=== PATIENT | female | born 1970 | race African-American/Black ===

== ENCOUNTER 2016-10-21 17:33 | Emergency (ER) | payer OTHER ==
[2016-10-21 17:52] VITALS: BP 110/69
--- NOTE | 2016-10-21 19:12 | UC ---
Ear Complaint HPI - HPI Summary HPI Summary: 46 female presents today complaining of left ear pain that began 2 days ago . She states her "head feels clogged." She admits to pain radiating into her left jaw/neck and it hurts upon movement/twisting her neck. Patient denies nasal congestion, sore throat. Does admit to having a cough that is worse at night. She also feels dizzy and has headache due to the ear pain/fullness. Denies difficulty breathing or chest pain. No fever/chills. - History of Current Complaint Chief Complaint: UCEar Stated Complaint: EAR THROAT PAIN Time Seen by Provider: 10/21/16 18:18 Hx Obtained From: Patient Hx Last Menstrual Period: 2 WEEKS AGO ?: No Onset/Duration: Sudden Onset, Lasting Days Severity Initially: Mild Severity Currently: Moderate Pain Intensity: 8 Pain Scale Used: 0-10 Numeric Alleviating Factors: OTC Meds - minimal relief with ibuprofen Associated Signs/Symptoms: Positive: URI Symptoms - cough. Negative: Discharge , Hearing Loss, Foreign Body Sensation - Allergies/Home Medications Allergies/Adverse Reactions: Allergies Allergy/AdvReac Type Severity Reaction Status Date / Time Amoxicillin Allergy Intermediate Hives Verified 10/21/16 17:52 Hydrocodone [From Vicodin] Allergy Intermediate Itching Verified 10/21/16 17:52 Home Medications: Home Medications Tizanidine HCl 2 mg PO 10/21/16 [History] Valsartan/HCTZ 80/12.5(NF) [Diovan Hct 80/12.5(NF)] 1 tab PO DAILY 10/21/16 [ History Confirmed 10/21/16] PMH/Surg Hx/FS Hx/Imm Hx Endocrine History Of: Denies: Diabetes, Thyroid Disease, Hyperthyroidism, Hypothyroidism Cardiovascular History Of: Denies: Cardiac Disorders, Hypertension, Pacemaker/ICD Respiratory History Of: Denies: COPD, Asthma GI/ History Of: Denies: Ulcer Neurological History Of: Denies: TIA, Seizures Psychological History Of: Denies: Anxiety, Depression Cancer History Of: Denies: Breast Cancer - Surgical History Surgical History: Yes Surgery Procedure, Year, and Place: Carpal Tunnel Surgery bilateral wrists 2008 , C section 1989 - Family History Known Family History: Positive: Hypertension - Social History Alcohol Use: None Substance Use Type: None Smoking Status (MU): Current Every Day Smoker Type: Cigarettes Amount Used/How Often: 5-6 CIG/DAY - Immunization History Most Recent Tetanus Shot: 2010 Review of Systems Constitutional: Negative Skin: Negative Eyes: Negative ENT: Ear Ache - radiating to left neck, painful to move neck Respiratory: Cough Cardiovascular: Negative Gastrointestinal: Negative Neurovascular: Negative Neurological: Headache Psychological: Negative All Other Systems Reviewed And Are Negative: Yes Physical Exam Triage Information Reviewed: Yes Appearance: Well-Appearing, No Pain Distress, Well-Nourished Vital Signs: Initial Vital Signs Temp 97.6 F 10/21/16 17:49 Pulse 87 10/21/16 17:49 Resp 16 10/21/16 17:49 BP 110/69 10/21/16 17:49 Pulse Ox 98 10/21/16 17:49 Vital Signs Reviewed: Yes Eyes: Positive: Conjunctiva Clear ENT: Positive: Hearing grossly normal, Pharynx normal, TM dull - left effusion/ fluid behind ear drum, not retracted, no signs of infection (erythema, bulging, or discharge). Negative: Nasal congestion, Nasal drainage, TM bulging, TM red, Tonsillar swelling, Tonsillar exudate Dental: Positive: Cervical Lymphadenopathy Neck: Positive: Supple, Tenderness @ - left lateral nexk jaw along cervical chain., Enlarged Nodes @ - left cervical chain Respiratory: Positive: Chest non-tender, Lungs clear, Normal breath sounds, No respiratory distress Cardiovascular: Positive: RRR, No Murmur, Pulses Normal, Brisk Capillary Refill Abdominal Exam: Normal Musculoskeletal Exam: Normal Neurological Exam: Normal Psychological Exam: Normal Skin Exam: Normal Ear Complaint Course/Dx - Course Course Of Treatment: patient will be prescribed claritin-d and flonase to help with congestion and eustachian tube dysfunction. patient instructed to continue use of tylenol/ibuprofen for pain and also to try using saline rinses. if pain and symptoms do not subside told to inform primary care doctor at appointment on sunday for further evaluation and possible antibiotic course. she was in agreement with this plan - Differential Dx/Diagnosis Differential Diagnosis/HQI/PQRI: Bronchitis, Cerumen Impaction, Otitis Externa, Otitis Media, URI Provider Diagnoses: rhinosinusitis, serous effusion left TM w/o otitis media Discharge - Discharge Plan Condition: Stable Disposition: HOME Prescriptions: Fluticasone NASAL SPRAY 50MCG* [Flonase NASAL SPRAY 50MCG*] 2 spray BOTH NARES DAILY #1 btl Loratadine & Pseudoephedrine [Claritin-D 24 Hour 10-240 mg] 1 tab PO DAILY PRN # 10 tab PRN Reason: Congestion Patient Education Materials: Rhinosinusitis (ED), Serous Otitis Media (ED) Referrals: Al Martin MD [Primary Care Provider] - Additional Instructions: Take antihistamine and nasal spray as prescribed to help with congestion and ear fullness. Use hot packs on ear neck to help soothe discomfort. Try using OTC Saline Rinses/Saline sprays to help with congestion and moisturizing your airways. You may also want to get a cough suppressant over the counter to help with your cough to take before bedtime. If symptoms have not improved in the next 1-2 days or have gotten worse be sure to discuss this with your primary care doctor during your appointment on Sunday10/23/16.
== END 2016-10-21 19:16 | disposition home or self-care (01) ==
LOC: UCEAST 17:33
DX: J32.9 Chronic sinusitis, unspecified (principal); H65.192 Other acute nonsuppurative otitis media, left ear; Z88.5 Allergy status to narcotic agent; Z88.0 Allergy status to penicillin; F17.210 Nicotine dependence, cigarettes, uncomplicated
CPT/HCPCS: 99212; G0463

== ENCOUNTER 2017-04-10 14:57 | Emergency (ER) | payer OTHER ==
[2017-04-10 15:16] VITALS: BP 123/71
[2017-04-10] MEDS ORDERED: Aspirin Low Dose CHEW TAB* 81 MG ONE (16:35)
[2017-04-10] MEDS ORDERED: Aspirin Low Dose CHEW TAB* 81 MG PO ONE (16:35)
--- NOTE | 2017-04-10 16:48 | UC ---
Kayce Gonzalez Alok, scribed for Carolina Dash MD on 04/10/17 at 1639 . Cardiac HPI - HPI Summary HPI Summary: 46F presents to [facility] for CP accompanied by SOB/dyspnea since last night. Pt states that her CP is described as heaviness/soreness at her mid-sternal which radiates to her bilateral chest. Pt reports chest spasms for > 1 year. Pt states typically they last <1 minute. PT states never have they lasted this long and she doesn't usually have SOB. Pt states she has taken antacid with improvement of her sx. States she took last night but vomited it up. No other medications have been taken. Pt states that nothing makes her CP better/worse. Pt reports feels fatigue everywhere. Pt denies belching or unusual taste in her mouth. Pt denies cough. PMHx includes HTN. Pt denies h/o DVT/PE. Pt last had a stress test done over a year ago at [facility] and "everything ok" Pt has not seen cardiology since. Pt smokes 1/2 ppd tobacco. Pt denies illicit drugs/ETOH. Pt states her PCP is Dr. Martin and her wet and dry sugar bin operator is Dr. Reynoso. Pt medications reviewed this visit. - History of Current Complaint Chief Complaint: UCGeneralIllness Stated Complaint: TROUBLE BREATHING,CHEST PRESSURE Time Seen by Provider: 04/10/17 16:22 Hx Obtained From: Patient Onset/Duration: Lasting Days, Still Present Timing: Constant Initial Severity: Moderate Current Severity: Moderate Chest Pain Location: Mid Sternal, Left Anterior, Right Lateral Character: Dull/Aching, Heaviness, Pressure/Squeezing Aggravating: Deep Breaths Alleviating: Rest, Nothing Associated Signs & Symptoms: Positive: Chest Pain, SOB, Nausea/Vomiting. Negative: Cough - Allergy/Home Medications Allergies/Adverse Reactions: Allergies Allergy/AdvReac Type Severity Reaction Status Date / Time Amoxicillin Allergy Intermediate Hives Verified 10/21/16 17:52 Hydrocodone [From Vicodin] Allergy Intermediate Itching Verified 10/21/16 17:52 PMH/Surg Hx/FS Hx/Imm Hx Previously Healthy: Yes Cardiovascular History: Hypertension - Surgical History Surgical History: Yes Surgery Procedure, Year, and Place: Carpal Tunnel Surgery bilateral wrists 2008 , C section 1989 - Family History Known Family History: Positive: Hypertension - Social History Occupation: Employed Full-time Alcohol Use: None Substance Use Type: None Smoking Status (MU): Former Smoker Type: Cigarettes Amount Used/How Often: 5-6 CIG/DAY - Immunization History Most Recent Tetanus Shot: 2010 Review of Systems Constitutional: Negative Skin: Negative Eyes: Negative ENT: Negative Respiratory: Shortness Of Breath, Other - dyspnea Cardiovascular: Chest Pain Gastrointestinal: Vomiting - x 1 yesterday Genitourinary: Negative Motor: Negative Neurovascular: Negative Musculoskeletal: Myalgia Neurological: Negative Psychological: Negative All Other Systems Reviewed And Are Negative: Yes Physical Exam Triage Information Reviewed: Yes Appearance: Well-Appearing, No Pain Distress, Well-Nourished Vital Signs: Initial Vital Signs Temp 97.7 F 04/10/17 15:13 Pulse 88 04/10/17 15:13 Resp 18 04/10/17 15:13 BP 123/71 04/10/17 15:13 Pulse Ox 100 04/10/17 15:13 Vital Signs Reviewed: Yes Eye Exam: Normal Eyes: Positive: Conjunctiva Clear ENT Exam: Normal ENT: Positive: Hearing grossly normal, TMs normal. Negative: Nasal drainage Neck exam: Normal Neck: Positive: Supple, Nontender, No Lymphadenopathy Respiratory: Positive: Chest non-tender, Lungs clear, Normal breath sounds, No respiratory distress, Other: - speaking full, easy sentences. Not reproducible pain to anterior chest wall Cardiovascular Exam: Normal Cardiovascular: Positive: RRR, No Murmur, Pulses Normal Abdominal Exam: Normal Abdomen Description: Positive: Nontender, No Organomegaly, Soft Bowel Sounds: Positive: Present Musculoskeletal: Positive: Strength Intact, ROM Intact, No Edema Neurological Exam: Normal Neurological: Positive: Alert, Muscle Tone Normal Skin Exam: Normal Diagnostics - EKG Cardiac Rate: NL - 77 bpm Cardiac Rhythm: Sinus: Normal - TIME: 1456 ST Segment: Normal - Assessment/Plan Course Of Treatment: PT with a h/o htn, tobacco use reports chest pressure and sob since yesterday. PT states different than previous history of chest spasms. No analgesia taken. Pt reports negative stress test 1 year ago. discussed with pt differential including cardiac cause for chest pain. advised pt transfer by EMS to ED For further eval likely to include troponin. Pt refuses - discussed with pt risks or leaving AMA and transfer by private car. Pt accepting of risks including permanent disability and . Pt advised to call 911 if changes her mind or change to her sx. aMA paperwork complete - Clinical Impression Provider Diagnoses: chest pain Discharge - Discharge Plan Condition: Stable Disposition: AGAINST MEDICAL ADVICE Patient Education Materials: Chest Pain (ED) Referrals: Al Martin MD [Primary Care Provider] - Additional Instructions: The doctor that evaluated you today recommended you go to the nearest emergency department for further testing to evaluation your chest pain. Your doctor recommended you go by ambulance. You declined the ambulance transfer and have chosen to go by private vehicle. As discussed, the risk include but are not limited to damange to your heart, heart rhythm problems, permanent disability and sudden . If you change your mind or your symptoms change - call 911 GO to the emergency department - they are expecting you The documentation as recorded by the Kayce rizo Alok accurately reflects the service I personally performed and the decisions made by me, Carolina Dash MD.
== END 2017-04-10 16:44 | disposition left against medical advice (07) ==
LOC: UCEAST 14:57
DX: R07.9 Chest pain, unspecified (principal); I10 Essential (primary) hypertension
CPT/HCPCS: 93005; 99212; A9270-GY; G0463

== ENCOUNTER 2017-04-10 17:09 | Observation (INO) | payer OTHER ==
[2017-04-10] MEDS ORDERED: Aspirin Low Dose CHEW TAB* 81 MG PO ONE (18:03)
[2017-04-10 18:34] LABS: Hematocrit 39 % (35-47); Hemoglobin 13.1 g/dl (12.0-16.0); Mean Corpuscular HGB Conc 34 g/dl (31-36); Mean Corpuscular Hemoglobin 29 pg (27-31); Mean Corpuscular Volume 87 fL (80-97); Mean Platelet Volume 8 um3 (7.4-10.4); Red Blood Count 4.48 10^6/ul (4.0-5.4); Red Cell Distribution Width 13 % (10.5-15); White Blood Count 9.1 10^3/ul (3.5-10.8)
--- NOTE | 2017-04-10 18:53 | ED ---
I, Oh,Soohyun, scribed for Mike Gilbert MD on 04/10/17 at 1800 . HPI Chest Pain - HPI Summary HPI Summary: This 46 y/o female presents to ED for constant but waxing and waning CP since yesterday. Inspiration makes it worse. Positive n/v yesterday. Negative diaphoresis. Pt reports chronic chest "spasm" for which pt is following up with Dr. Reynoso and benign stress test. Pt states this episode of CP is more persistent and long lasting than her usual bout of chest "spasm". Pt is currently taking diazepam. PMHx includes HTN that is controlled with Diovan. - History of Current Complaint Chief Complaint: EDChestPainROMI Time Seen by Provider: 04/10/17 17:51 Hx Obtained From: Patient Onset/Duration: Started Days Ago, Atraumatic, Still Present Timing: Constant Pain Intensity: 9 Pain Scale Used: 0-10 Numeric Chest Pain Location: Diffuse Chest Pain Radiates: No Character: Dull/Aching Aggravating Factor(s): Deep Breaths Alleviating Factor(s): Nothing Associated Signs and Symptoms: Positive: Chest Pain, Nausea, Vomiting. Negative : Shortness of Breath, Diaphoresis - Allergy/Home Medications Allergies/Adverse Reactions: Allergies Allergy/AdvReac Type Severity Reaction Status Date / Time Amoxicillin Allergy Intermediate Hives Verified 04/10/17 17:35 Hydrocodone [From Vicodin] Allergy Intermediate Itching Verified 04/10/17 17:35 Home Medications: Home Medications ALPRAZolam TAB* [Xanax TAB*] 0.25 mg PO Q8H PRN 04/10/17 [History Confirmed ] PMH/Surg Hx/FS Hx/Imm Hx Endocrine/Hematology History: Denies: Hx Diabetes, Hx Thyroid Disease Cardiovascular History: Reports: Hx Hypertension Denies: Hx Hypercholesterolemia, Hx Pacemaker/ICD, Hx Peripheral Vascular Disease Respiratory History: Denies: Hx Asthma, Hx Chronic Obstructive Pulmonary Disease (COPD) GI History: Denies: Hx Ulcer Musculoskeletal History: Denies: Hx Arthritis, Hx Osteoporosis Sensory History: Denies: Hx Cataracts, Hx Contacts or Glasses, Hx Glaucoma, Hx Hearing Aid Opthamlomology History: Denies: Hx Cataracts, Hx Contacts or Glasses, Hx Glaucoma Neurological History: Denies: Hx Headaches, Hx Seizures, Hx Transient Ischemic Attacks (TIA) Psychiatric History: Denies: Hx Anxiety, Hx Depression, Hx Panic Disorder - Cancer History Hx Chemotherapy: No Hx Radiation Therapy: No - Surgical History Surgery Procedure, Year, and Place: Carpal Tunnel Surgery bilateral wrists 2008 , C section 1989 Infectious Disease History: No Infectious Disease History: Denies: Hx Hepatitis, Hx Human Immunodeficiency Virus (HIV), Hx of Known/ Suspected MRSA, Hx Shingles, Hx Tuberculosis, Hx Known/Suspected VRSA, Traveled Outside the [place] in Last 30 Days - Family History Known Family History: Positive: Hypertension - Social History Alcohol Use: None Alcohol Amount: denies Hx Substance Use: No Substance Use Type: Reports: None Hx Tobacco Use: No Smoking Status (MU): Heavy Every Day Tobacco Smoker Type: Cigarettes Amount Used/How Often: 5-6 CIG/DAY Review of Systems Positive: Skin Diaphoresis. Negative: Fever Positive: Chest Pain Negative: Shortness Of Breath Positive: Vomiting, Nausea All Other Systems Reviewed And Are Negative: Yes Physical Exam - Summary Physical Exam Summary: Well-appearing, no pain distress, Obese Warm, dry, color reflects adequate perfusion Nml head/face Nml eyes Nml ENT Supple, non-tender CTA, breath sound present RRR. POSITIVE PARASTERNAL TENDERNESS Abd soft, non-tender, Bowel sounds + Nml musculoskeletal Nml neuro Nml psychiatric, affect/mood appropriate Triage Information Reviewed: Yes Vital Signs On Initial Exam: Initial Vitals Temp Pulse Resp BP Pulse Ox 98.1 F 72 18 118/76 100 04/10/17 17:18 04/10/17 17:18 04/10/17 17:18 04/10/17 17:18 04/10/17 17:18 Vital Signs Reviewed: Yes - Faina Coma Scale Coma Scale Total: 15 Diagnostics - Vital Signs Vital Signs Temp Pulse Resp BP Pulse Ox 04/10/17 17:35 75 99 04/10/17 17:34 111/52 04/10/17 17:33 98.1 F 72 19 111/52 99 04/10/17 17:18 98.1 F 72 18 118/76 100 - Laboratory Lab Results: Lab Results 04/10/17 04/10/17 Range/Units 18:25 18:25 WBC 9.1 (3.5-10.8) 10^3/ul RBC 4.48 (4.0-5.4) 10^6/ul Hgb 13.1 (12.0-16.0) g/dl Hct 39 (35-47) % MCV 87 (80-97) fL MCH 29 (27-31) pg MCHC 34 (31-36) g/dl RDW 13 (10.5-15) % Plt Count 221 (150-450) 10^3/ul MPV 8 (7.4-10.4) um3 Neut % (Auto) 45.7 (38-83) % Lymph % (Auto) 43.9 (25-47) % Gray % (Auto) 5.5 (1-9) % Eos % (Auto) 3.6 (0-6) % Baso % (Auto) 1.3 (0-2) % Absolute Neuts (auto) 4.2 (1.5-7.7) 10^3/ul Absolute Lymphs (auto) 4.0 (1.0-4.8) 10^3/ul Absolute Monos (auto) 0.5 (0-0.8) 10^3/ul Absolute Eos (auto) 0.3 (0-0.6) 10^3/ul Absolute Basos (auto) 0.1 (0-0.2) 10^3/ul Absolute Nucleated RBC 0.01 10^3/ul Nucleated RBC % 0.1 D-Dimer, Quantitative < 200 (Less Than 230) ng/mL Result Diagrams: 04/10/17 18:25 Lab Statement: Any lab studies that have been ordered have been reviewed, and results considered in the medical decision making process. - Radiology CXR Radiology Interpretation Completed By: Radiologist - EKG 1726 Cardiac Rate: NL - 68 BPM EKG Rhythm: Sinus Rhythm EKG Comparison: No Significant Change - 06/10/2015 Chest Pain Course/Dx - Course Course Of Treatment: Ms. Cano presented with about 24 hours of CP. She normally has spasms in her chest that go away after a few minutes but this has persisted. It is exacerbated by inspiration only. She is tender in the chest wall and she is getting a W/U to R/O any dangerous pathology. I expect that she will go home and that this is a chest wall pain. - Diagnoses Provider Diagnoses: Chest wall pain Discharge - Discharge Plan Condition: Stable Disposition: OTHER Discharge Disposition Comment: Signed out at change of shift. The documentation as recorded by the scribeRamon Soohyun accurately reflects the service I personally performed and the decisions made by me, Mike Gilbert MD.
[2017-04-10 18:55] LABS: Albumin 3.9 g/dL (3.2-5.2); BUN/Creatinine Ratio 11.5 (8-20); Calcium 9.2 mg/dL (8.6-10.3); EGFR Non-African American 56.8 (>60); Globulin 3.2 g/dL (2-4); Potassium 3.6 mmol/L (3.5-5.0); Total Bilirubin 0.4 mg/dL (0.2-1.0); Total Protein 7.1 g/dL (6.4-8.9)
[2017-04-10 18:59] LABS: Troponin I 0.06 ng/mL (<0.04)
--- NOTE | 2017-04-10 19:06 | CONSULT ---
Consult Consult: The troponin returned a little elevated and Dr. Seo was contacted. She will be admitted in stable condition with a diagnosis of chest pain.
--- NOTE | 2017-04-10 19:30 | RAD ---
Indication: Chest pain since yesterday. Hypertension. Comparison: June 10, 2015 Technique: Upright AP 1830 hours Report: Clear lungs and pleural spaces. Negative for pneumothorax. Accounting for mild rightward rotation the heart, pulmonary vasculature, and mediastinal contours are unremarkable. Unremarkable osseous structures and soft tissue contours. IMPRESSION: No evidence for acute intrathoracic disease.
[2017-04-10] MEDS ORDERED: ALPRAZolam TAB* 0.25 MG PO PRN (20:04)
[2017-04-10] MEDS ORDERED: traMADol TAB* 50 MG PO PRN (20:04)
[2017-04-10] MEDS: Heparin VIAL(*) 5000 UNITS/ML VIAL (FIVE THOUSAND) SUBCUT SCH (22:50)
[2017-04-10] MEDS: tiZANidine TAB* 2 MG PO SCH (22:50)
--- NOTE | 2017-04-11 00:20 | HP ---
CC: Dr. Martin * HISTORY AND PHYSICAL: DATE OF ADMISSION: CHIEF COMPLAINT: Chest pain. HISTORY OF PRESENT ILLNESS: The patient is a 46-year-old woman who said she had chest pain that started yesterday. Her doctors stated it was a spasm and they gave her a muscle relaxant for it. So, she took the muscle relaxant for it and she vomited everywhere. The pain never went away. It was 9.5/10 in severity, but it is down now to about a 7/10. She feels like as someone sitting on her chest. It started on her right side, then moved to her left side and it is now in the center of her chest. She said that she had a warm feeling in her neck. She denied any shortness of breath. It was worse when she took a deep breath before, but now it is not. She has no nausea, vomiting now. No shortness of breath. No palpitations. No sweating. PAST MEDICAL HISTORY: Significant for hypertension. PAST SURGICAL HISTORY: Significant for carpal tunnel surgery and a . ALLERGIES: She has an allergy/adverse reaction to amoxicillin and Vicodin. CURRENT MEDICATIONS: As follows: 1. Tramadol 50 mg 3 times a day as needed. 2. Diovan/hydrochlorothiazide 80/12.5 one tablet daily. 3. Tizanidine 2 mg twice daily. 4. Xanax 0.25 mg every 8 hours as needed. FAMILY HISTORY: Mother is alive at 64, has bilateral bilateral hip replacements , but no heart disease. Father at 35 of pancreatic cancer. SOCIAL HISTORY: Still smokes a half pack a day, used to smoke over a pack a day , has done so for over 20 years. No alcohol. No recreational drug use. 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 She just got on February 27 and she had a son who last year. REVIEW OF SYSTEMS: A 14-point review of systems was completed with the patient. All pertinent positives and negatives are in the history of present illness, otherwise it is negative. PHYSICAL EXAMINATION GENERAL: A pleasant woman, lying in bed, in no acute distress. VITAL SIGNS: Temperature 98.1 degrees, heart rate 85 beats a minute, respiratory rate 16 breaths per minute, pulse ox 100%, blood pressure 109/82. HEENT: Normocephalic, atraumatic. Pupils equal, round, and reactive to light. Moist mucous membranes. NECK: Supple. No JVD, bruits, palpable thyroid or lymphadenopathy. CHEST: Clear to auscultation and percussion bilaterally. CARDIOVASCULAR: S1 and S2 appreciated. ABDOMEN: Positive bowel sounds in all 4 quadrants. Soft, nontender, nondistended. EXTREMITIES: No cyanosis, clubbing, or edema. +2 peripheral pulses bilaterally. NEUROLOGIC: Alert and oriented x3. Moves all extremities. SKIN: No rashes or abnormalities. LAB DATA: White count of 9.1, hemoglobin 13.1, hematocrit 38.9, platelets 221. Sodium 134, potassium 3.6, chloride 103, CO2 27, BUN 12, creatinine 1.04, glucose 82, troponin 0.06. D-dimer is less than 200. Chest x-ray shows no evidence for acute intrathoracic disease. EKG shows normal sinus rhythm at 68 beats per minute. Normal axis. No acute ST-T wave changes. ASSESSMENT AND PLAN: 1. Chest pain, unlikely cardiac, but the trop is elevated. We will cycle her trops. If they do not move, we will get a nuclear stress test in the morning. Check lipid profile. Admit to telemetry. 2. Tobacco abuse, encouraged cessation. Not in need of nicotine replacement at this time. 3. Hypertension, currently well controlled. Continue current regimen. 4. DVT prophylaxis, heparin subcu. 5. FEN. NPO after midnight. 6. The patient is a full code. TIME SPENT: Over 75 minutes were spent on this H and P, more than 40 minutes of which was spent in direct [id number] contact with the patient in evaluation , physical exam, and counseling and coordination of care. [id number]/[facility] #: [id number] TAMMY
[2017-04-11 04:56] LABS: HDL Cholesterol 33.9 mg/dL
[2017-04-11] MEDS: Heparin VIAL(*) 5000 UNITS/ML VIAL (FIVE THOUSAND) SUBCUT SCH (06:09)
[2017-04-11 08:45] VITALS: BP 104/60
[2017-04-11] MEDS: tiZANidine TAB* 2 MG PO SCH (08:49)
[2017-04-11] MEDS ORDERED: Valsartan TAB* 80 MG PO SCH (09:00)
[2017-04-11] MEDS ORDERED: Omeprazole CAP* 20 MG PO SCH (09:00)
[2017-04-11] MEDS ORDERED: Hydrochlorothiazide TAB* 25 MG PO SCH (09:00)
--- NOTE | 2017-04-11 13:06 | RAD ---
Edited for charges. INDICATION: Chest pain. COMPARISON: There are no prior studies available for comparison. Technique: A single day myocardial perfusion stress study was performed. Initially a resting study was performed. The patient was given an intravenous injection of 10.3 mCi of technetium 99m tetrofosmin and and the heart was imaged in multiple projections. The patient returned later in the day and under the direction of Dr. Remy, the patient was exercised to a peak heart rate of 189 beats per minute which was 109% of the maximum predicted heart rate. Subsequently the patient was given intravenous injection of 26.3 mCi of technetium 99m tetrofosmin and the heart was imaged in multiple projections. Images were reconstructed in the axial, sagittal and coronal planes and in a 3- D format. FINDINGS: There appears to be normal wall motion and myocardial thickening. The left ventricular ejection fraction was calculated to be 69%. Review of the images demonstrates normal distribution of radiopharmaceutical. There was no evidence for infarct or ischemia. IMPRESSION: NO EVIDENCE FOR INFARCT OR ISCHEMIA. ASSESSMENT: Low risk. Based on imaging criteria from ACC/AHA 2002 Guideline Update for the Management of Patients With Chronic Stable Angina Table 23. Noninvasive Risk Stratification. MTDD
--- NOTE | 2017-04-11 13:44 | DCNOTE ---
Patient seen this AM and again after stress test. Reports feeling much better this morning, residual chest discomfort feel like heartburn. No SOB. On exam, RRR, s1 and s2 present, no m/g/r, abd soft, NTND, BS+, lungs CTA B/L, no w/r/r NST low risk. Will trial PPI. Stop taking PO apple cider vinegar. F/U with PCP.
--- NOTE | 2017-04-11 15:44 | DS ---
CC: Dr. Martin DATE OF ADMISSION: 04/10/2017. DATE OF DISCHARGE: 04/11/2017. PRIMARY CARE PHYSICIAN: Dr. Martin. PRINCIPAL DISCHARGE DIAGNOSIS: Chest pain, mild troponin elevation. SECONDARY DIAGNOSIS: Hypertension. DISCHARGE MEDICATION REGIMEN: 1. Omeprazole 20 mg by mouth daily. 2. Diovan 80/12.5 one tablet by mouth daily. 3. Tramadol 50 mg by mouth 3 times daily as needed for pain. 4. Tizanidine 2 mg by mouth 2 times daily. 5. Alprazolam 0.25 mg by mouth every 8 hours as needed for anxiety. STUDIES DONE DURING HOSPITALIZATION: 1. Chest x-ray: Impression: No evidence for acute intrathoracic disease. 2. Cardiac stress test: Impression: No evidence for infarct or ischemia. Assessment: Low risk. HISTORY OF PRESENT ILLNESS AND HOSPITAL SUMMARY: Please see the full history and physical by Dr. Maximo Seo for full details. Briefly, Ms. Cano is a 46-year-old female with a past medical history o f hypertension who presented to the hospital with severe right and left sided chest pain. She state s it started on the right and then moved to the left and subsequently felt like a pressure and then changed into a burning sensation. The pain was pleuritic in nature. She denied any shortness of br eath, associated nausea or vomiting, or diaphoresis. In the emergency department, she was found to have a normal EKG; however, she had a minimally elevated troponin to 0.06, which peaked at 0.07. Th e following morning when I evaluated the patient, she states that the pain was much improved and now felt more like indigestion. She underwent a nuclear cardiac stress test that was negative. Unclea r as to the exact etiology of her chest pain or her mild troponin elevation. The patient states she takes apple cider vinegar twice a day which could certainly contribute to sensation of reflux. I t old her to stop this for now and consider one week trial of Omeprazole to see if there is any improv ement in her symptoms. The patient will be discharged to follow-up with her PCP as an outpatient. Total time spent on this discharge was 40 minutes. This is a summary of the hospitalization. Please see the full medical record for further details. [id number]/[facility] #: [id number]
== END 2017-04-11 15:10 | disposition home or self-care (01) ==
LOC: ED 17:09 → MEDTELE 20:12
PROVIDERS: ADMIT Internal Medicine; ATTEND Hospitalist
DX: R07.9 Chest pain, unspecified (principal); R74.8 Abnormal levels of other serum enzymes; I10 Essential (primary) hypertension; Z79.899 Other long term (current) drug therapy; Z88.0 Allergy status to penicillin; Z88.5 Allergy status to narcotic agent; F17.210 Nicotine dependence, cigarettes, uncomplicated
CPT/HCPCS: 36415; 71010; 78452; 80053; 80061; 83605; 84484; 85025; 85379; 93005; 93017; 96372; 99284; 99406; A9270-GY; A9502; G0378; J1644

== ENCOUNTER 2017-11-27 21:08 | Emergency (ER) | payer OTHER ==
[2017-11-27 21:55] LABS: ABS Basophils 0.1 10^3/ul (0-0.2); ABS Eosinophils 0.1 10^3/ul (0-0.6); ABS Lymphocytes 2.6 10^3/ul (1.0-4.8); ABS Monocytes 0.3 10^3/ul (0-0.8); ABS Neutrophils 6.3 10^3/ul (1.5-7.7); ABS Nucleated RBC 0 10^3/ul; Eosinophil % 0.7 % (0-6); Hematocrit 39 % (35-47); Hemoglobin 13.4 g/dl (12.0-16.0); Lymphocyte % 28.1 % (25-47); Mean Corpuscular HGB Conc 34 g/dl (31-36); Mean Corpuscular Hemoglobin 29 pg (27-31); Mean Corpuscular Volume 86 fL (80-97); Mean Platelet Volume 8 um3 (7.4-10.4); Nucleated Red Blood Cells % 0; Platelet Count 236 10^3/ul (150-450); Red Blood Count 4.61 10^6/ul (4.0-5.4); Red Cell Distribution Width 13 % (10.5-15); White Blood Count 9.4 10^3/ul (3.5-10.8)
[2017-11-27] MEDS ORDERED: Diazepam SYRINGE* 5 MG/ML 2 ML SYRINGE (10 MG total) IV ONE (21:55)
[2017-11-27] MEDS ORDERED: Ketorolac INJ* 30 MG/ML 1 ML VIAL IV PUSH ONE (21:55)
--- NOTE | 2017-11-27 21:58 | RAD ---
INDICATION: Chest pain. COMPARISON: Comparison is made with a prior chest x-ray study from June 10, 2015. TECHNIQUE: A portable view of the chest was obtained. FINDINGS: Cardiac and mediastinal contours appear to be within normal limits. The lungs are underinflated and grossly clear. No pleural effusion is seen. IMPRESSION: NO EVIDENCE FOR ACUTE DISEASE.
[2017-11-27 22:03] LABS: INR 0.91 (0.77-1.02)
[2017-11-27 22:11] LABS: EGFR Non-African American 59.2 (>60)
--- NOTE | 2017-11-27 23:05 | ED ---
Letty Gonzlaez Rebecca, scribed for Viktor Perez MD on 11/27/17 at 2155 . 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 Pain is currently severe, ranked 10/10 and characterized as spasmodic with radiation to the left shoulder and left and rear sides of the neck. Sx aggravated by movement, alleviated by nothing, unchanged by ASA. Additionally c/o bilateral hand numbness/tingling that she states is present "all the time." PMHx carpal tunnel and neck spasms for which she has had a neck XR that was negative per pt, and she is currently taking Gabapentin. Typically spasms last 20-30 seconds, but this episode has been constant since onset. In March 2017 the pt had a stress test and cardiac workup that was negative. - History of Current Complaint Chief Complaint: EDChestWallPain Time Seen by Provider: 11/27/17 21:45 Hx Obtained From: Patient Hx Last Menstrual Period: 2 WEEKS AGO Onset/Duration: Started Hours Ago, Still Present Time of Onset: 14:30 Timing: Constant Current Severity: Severe Pain Intensity: 10 Pain Scale Used: 0-10 Numeric Chest Pain Location: Left Anterior Chest Pain Radiates: Yes Chest Pain Radiates To:: Shoulder - Left, Neck - Left and rear Character: Other: - Spasmodic Aggravating Factor(s): Movement Alleviating Factor(s): Nothing Associated Signs and Symptoms: Positive: Other: - Bilateral hand numbness/ tingling - Allergy/Home Medications Allergies/Adverse Reactions: Allergies Allergy/AdvReac Type Severity Reaction Status Date / Time amoxicillin Allergy Hives Verified 11/27/17 21:13 hydrocodone Allergy Itching Verified 11/27/17 21:14 PMH/Surg Hx/FS Hx/Imm Hx Endocrine/Hematology History: Denies: Hx Diabetes, Hx Thyroid Disease Cardiovascular History: Reports: Hx Hypertension Denies: Hx Hypercholesterolemia, Hx Pacemaker/ICD, Hx Peripheral Vascular Disease Respiratory History: Denies: Hx Asthma, Hx Chronic Obstructive Pulmonary Disease (COPD) GI History: Denies: Hx Ulcer Musculoskeletal History: Denies: Hx Arthritis, Hx Osteoporosis Sensory History: Reports: Hx Contacts or Glasses Denies: Hx Cataracts, Hx Glaucoma, Hx Hearing Aid Opthamlomology History: Reports: Hx Contacts or Glasses Denies: Hx Cataracts, Hx Glaucoma Neurological History: Denies: Hx Headaches, Hx Seizures, Hx Transient Ischemic Attacks (TIA) Psychiatric History: Denies: Hx Anxiety, Hx Depression, Hx Panic Disorder - Cancer History Hx Chemotherapy: No Hx Radiation Therapy: No - Surgical History Surgery Procedure, Year, and Place: Carpal Tunnel Surgery bilateral wrists 2008 , C section 1989 Infectious Disease History: No Infectious Disease History: Denies: Hx Hepatitis, Hx Human Immunodeficiency Virus (HIV), Hx of Known/ Suspected MRSA, Hx Shingles, Hx Tuberculosis, Hx Known/Suspected VRSA, Traveled Outside the [place] in Last 30 Days - Family History Known Family History: Positive: Hypertension - Social History Alcohol Use: None Alcohol Amount: denies Hx Substance Use: No Substance Use Type: Reports: None Hx Tobacco Use: No Smoking Status (MU): Heavy Every Day Tobacco Smoker Type: Cigarettes Amount Used/How Often: 1 pack in 2 days Review of Systems Positive: Chest Pain Positive: Numbness - Numbness/tingling in the bilateral hands All Other Systems Reviewed And Are Negative: Yes Physical Exam - Summary Physical Exam Summary: VITAL SIGNS: Reviewed. GENERAL: ~Patient is a well-developed and nourished female who is lying comfortable in the stretcher. Patient is not in any acute respiratory distress. HEAD AND FACE: No signs of trauma. No ecchymosis, hematomas or skull depressions. No sinus tenderness. EYES: PERRLA, EOMI x 2, No injected conjunctiva, no nystagmus. EARS: Hearing grossly intact. Ear canals and tympanic membranes are within normal limits. MOUTH: Oropharynx within normal limits. NECK: Trachea is midline, no adenopathy, no JVD, no carotid bruit. Tenderness over the left side of the neck and neck pain with movement. CHEST: Symmetric, no tenderness at palpation LUNGS: Clear to auscultation bilaterally. No wheezing or crackles. CVS: Regular rate and rhythm, S1 and S2 present, no murmurs or gallops appreciated. ABDOMEN: Soft, non-tender. No signs of distention. No rebound no guarding, and no masses palpated. Bowel sounds are normal. EXTREMITIES: FROM in all major joints, no edema, no cyanosis or clubbing. NEURO: Alert and oriented x 3. No acute neurological deficits. Speech is normal and follows commands. SKIN: Dry and warm Triage Information Reviewed: Yes Vital Signs On Initial Exam: Initial Vitals Temp Pulse Resp BP Pulse Ox 97.9 F 89 16 145/83 99 11/27/17 21:10 11/27/17 21:10 11/27/17 21:10 11/27/17 21:10 11/27/17 21:10 Vital Signs Reviewed: Yes Diagnostics - Vital Signs Vital Signs Temp Pulse Resp BP Pulse Ox 11/27/17 21:42 84 15 100 11/27/17 21:10 97.9 F 89 16 145/83 99 - Laboratory Result Diagrams: 11/27/17 21:40 11/27/17 21:40 Lab Statement: Any lab studies that have been ordered have been reviewed, and results considered in the medical decision making process. - Radiology CXR Xray Interpretation: No Acute Changes - NO EVIDENCE FOR ACUTE DISEASE. ED physician reviewed this radiology report. Radiology Interpretation Completed By: Radiologist - EKG 2113 Cardiac Rate: NL - 85 bpm EKG Rhythm: Sinus Rhythm EKG Interpretation: Normal axis. Normal interval. No ischemic changes. Re-Evaluation - Re-Evaluation First Eval Re-Evaluation Time: 22:59 Change: Improved Comment: Pt's sx have improved since being given Valium and Toradol. Discussed results and D/C plan with the pt. 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 Sx aggravated by movement, unchanged by ASA. Additionally c/o bilateral hand numbness/ tingling that she states is present "all the time." PMHx carpal tunnel and neck spasms for which she has had a neck XR that was negative per pt, and she is currently taking Gabapentin. Typically spasms last 20-30 seconds, but this episode has been constant since onset. In March 2017 the pt had a stress test and cardiac workup that was negative. CXR reveals no acute findings. EKG is sinus rhythm with no ischemic changes. Troponin of 0.01. In the ED course, the pt was given Valium and Toradol which improved sx. Pt will be D/C to home with Dx of neck spasms and neck pain and a followup with her PCP with Rx for Valium and motrin. Allergies and elevated BP noted. - Diagnoses Provider Diagnoses: Neck muscle spasm, Neck pain Discharge - Discharge Plan Condition: Stable Disposition: HOME Prescriptions: Diazepam TAB(*) [Valium TAB(*)] 5 mg PO TID PRN #14 tab MDD 3 PRN Reason: Spasms - Neck Ibuprofen TAB* [Motrin TAB* 800 MG] 800 mg PO Q6H PRN #30 tab PRN Reason: Pain Patient Education Materials: Muscle Spasm (ED), Neck Pain (ED) Referrals: Al Martin MD [Primary Care Provider] - 3 Days Additional Instructions: RETURN TO EMERGENCY DEPARTMENT FOR ANY NEW OR WORSENING SYMPTOMS The documentation as recorded by the Letty rizo Rebecca accurately reflects the service I personally performed and the decisions made by Chris connell Abdul, MD.
[2017-11-27 23:27] VITALS: BP 120/78
== END 2017-11-27 23:35 | disposition home or self-care (01) ==
LOC: ED 21:08
DX: M62.838 Other muscle spasm (principal); M54.2 Cervicalgia; R20.0 Anesthesia of skin; R20.2 Paresthesia of skin; I10 Essential (primary) hypertension; Z88.1 Allergy status to other antibiotic agents; Z88.5 Allergy status to narcotic agent; F17.210 Nicotine dependence, cigarettes, uncomplicated
CPT/HCPCS: 36415; 71045; 80053; 82553; 83605; 84484; 85025; 85379; 85610; 93005; 96374; 96375; 99283; J1885; J3360

== ENCOUNTER 2018-09-28 15:46 | Emergency (ER) | payer OTHER ==
[2018-09-28 15:58] VITALS: BP 119/70
--- NOTE | 2018-09-28 16:16 | UC ---
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 - History Of Current Complaint Chief Complaint: UCUpperExtremity Stated Complaint: FINGER INJURY Time Seen by Provider: 09/28/18 16:11 Hx Obtained From: Patient Hx Last Menstrual Period: 09/15/2018 ?: No Mechanism Of Injury: crush Onset/Duration: Sudden Onset, Still Present Pain Intensity: 10 Pain Scale Used: 0-10 Numeric Character Of Pain: Aching, Throbbing Aggravating Factor(s): Movement Alleviating Factor(s): Nothing Associated Signs And Symptoms: Positive: Negative Related History: Dominant Hand Right - Allergies/Home Medications Allergies/Adverse Reactions: Allergies Allergy/AdvReac Type Severity Reaction Status Date / Time amoxicillin Allergy Hives Verified 11/27/17 21:13 hydrocodone Allergy Itching Verified 11/27/17 21:14 Home Medications: Home Medications Albuterol HFA INHALER* [Ventolin HFA Inhaler*] 09/28/18 [History] PMH/Surg Hx/FS Hx/Imm Hx Previously Healthy: No Cardiovascular History: Hypertension Psychological History: Anxiety - Surgical History Surgical History: Yes Surgery Procedure, Year, and Place: Carpal Tunnel Surgery bilateral wrists 2008 , C section 1989 - Family History Known Family History: Positive: Hypertension - Social History Occupation: Employed Part-time Lives: With Family Alcohol Use: None Alcohol Amount: denies Substance Use Type: None Smoking Status (MU): Light Every Day Tobacco Smoker Type: Cigarettes Amount Used/How Often: 1 pack in 2 days - Immunization History Most Recent Tetanus Shot: 2010 Review of Systems All Other Systems Reviewed And Are Negative: Yes Constitutional: Positive: Negative Skin: Positive: Bruising - tip of right 5th finger Eyes: Positive: Negative ENT: Positive: Negative Respiratory: Positive: Negative Cardiovascular: Positive: Negative Gastrointestinal: Positive: Negative Genitourinary: Positive: Negative Motor: Positive: Negative Neurovascular: Positive: Negative Musculoskeletal: Positive: Arthralgia - right fifth finger Neurological: Positive: Negative Psychological: Positive: Negative Is Patient Immunocompromised?: No Physical Exam Triage Information Reviewed: Yes Appearance: Well-Appearing, No Pain Distress, Well-Nourished Vital Signs: Initial Vital Signs Temp 97.9 F 09/28/18 15:52 Pulse 87 09/28/18 15:52 Resp 16 09/28/18 15:52 BP 119/70 09/28/18 15:52 Pulse Ox 98 09/28/18 15:52 Vital Signs Reviewed: Yes Eye Exam: Normal Eyes: Positive: Conjunctiva Clear ENT Exam: Normal ENT: Positive: Normal ENT inspection, Hearing grossly normal. Negative: Trismus , Muffled voice, Hoarse voice Dental Exam: Normal Neck exam: Normal Neck: Positive: Supple, Nontender Respiratory Exam: Normal Respiratory: Positive: Chest non-tender, No respiratory distress, No accessory muscle use Cardiovascular Exam: Normal Cardiovascular: Positive: RRR, Pulses Normal, Brisk Capillary Refill Musculoskeletal Exam: Other - right 5th finger painful mostly distally Musculoskeletal: Positive: Strength Limited @, ROM Limited @, Edema @ Neurological Exam: Normal Neurological: Positive: Alert, Muscle Tone Normal Psychological Exam: Normal Skin Exam: Other Skin: Positive: Other - acrylic nail cracked-small superficially lacaeration tip of finger well approximated Diagnostics - Radiology No standard instances Radiology Interpretation Completed By: Radiologist - minimally displaced fracture distant phalange Hand/Wrist Course/Dx - Course Course Of Treatment: up date tetanus, soap and water wash, po doxycycline, splint dressing follow with orthopedic MD - Differential Dx/Diagnosis Provider Diagnosis: Fracture of distal phalanx of finger of right hand Discharge - Sign-Out/Discharge Documenting (check all that apply): Patient Departure All imaging exams completed and their final reports reviewed: Yes - Discharge Plan Condition: Stable Disposition: HOME Prescriptions: DOXYcycline CAP(*) [DOXYcycline 100MG CAP(*)] 100 mg PO BID 7 Days #14 cap Patient Education Materials: Ibuprofen (By mouth), Finger Dislocation (ED), R.I.C.E. Treatment (ED), Crush Injury (ED) Forms: *Work Release Referrals: Taylor Calhoun MD [Medical Doctor] - 3 Days Additional Instructions: wash wound daily, check for infection daily---no swimming, soaking in water ( like doing the dishes) until cleared by ortho - Billing Disposition and Condition Condition: STABLE Disposition: Home - Attestation Statements Provider Attestation: Per institutional requirements, I have reviewed the chart, however, I was not consulted specifically or made aware of this patient by the midlevel provider. I did not personally evaluate, interact with , or disposition this patient.
[2018-09-28] MEDS ORDERED: Tetan/Diph/Pertus SYR(Tdap)* 0.5 ML SYR(BOOSTRIX) use SYR IM ONE (16:38)
[2018-09-28] MEDS ORDERED: Ibuprofen TAB* 600 MG PO ONE (16:38)
== END 2018-09-28 17:35 | disposition home or self-care (01) ==
LOC: UCEAST 15:46
DX: S62.636A Displaced fracture of distal phalanx of right little finger, initial encounter for closed fracture (principal); W23.0XXA Caught, crushed, jammed, or pinched between moving objects, initial encounter; Y92.810 Car as the place of occurrence of the external cause; Z23 Encounter for immunization; Z88.5 Allergy status to narcotic agent; Z88.0 Allergy status to penicillin; F17.210 Nicotine dependence, cigarettes, uncomplicated
CPT/HCPCS: 73140; 90715; 99213; A9270-GY; G0463

== ENCOUNTER 2020-01-08 15:37 | Emergency (ER) | payer OTHER ==
[2020-01-08 16:13] VITALS: BP 125/73
--- NOTE | 2020-01-08 16:19 | UC ---
Abdominal Pain Female HPI - HPI Summary HPI Summary: 49-year-old woman comes in with a chief complaint of left groin pain. Started early this morning and its gradually gotten worse during the course of the day. Was mild this morning now it severe. Pain is worse with palpation and movement. No fevers measured. No urinary symptoms bowels have been normal. Patient did have years ago no other abdominal surgeries. She has had tubal ligation in the past. Does not feel lightheaded. Patient had been having regular menstrual cycles until 6 months ago and then she had no menstrual cycle for 6 months and then 16 days ago started bleeding again and had bleeding for the whole time last bleeding was yesterday. No vaginal bleeding today. - History of Current Complaint Chief Complaint: UCGU Stated Complaint: LEFT SIDE GROIN PAIN Time Seen by Provider: 01/08/20 15:45 Hx Last Menstrual Period: now Pain Intensity: 10 Allergies/Adverse Reactions: Allergies Allergy/AdvReac Type Severity Reaction Status Date / Time amoxicillin Allergy Hives Verified 01/08/20 15:48 hydrocodone Allergy Itching Verified 01/08/20 15:48 Home Medications: Home Medications traMADol TAB* [Ultram*] 50 mg PO TID PRN 07/26/16 [History Confirmed 01/08/20] Valsartan/HCTZ 80/12.5(NF) [Diovan Hct 80/12.5(NF)] 1 tab PO DAILY 10/21/16 [ History Confirmed 01/08/20] ALPRAZolam TAB* [Xanax TAB*] 0.25 mg PO Q8H PRN 04/10/17 [History Confirmed ] Diazepam TAB(*) [Valium TAB(*)] 5 mg PO TID PRN #14 tab MDD 3 11/27/17 [Rx Confirmed 01/08/20] Albuterol HFA INHALER* [Ventolin HFA Inhaler*] 1 puff INH DAILY PRN 09/28/18 [ History Confirmed 01/08/20] Mometasone Furoate 45 gm TP DAILY 10/09/19 [History Confirmed 01/08/20] PMH/Surg Hx/FS Hx/Imm Hx Previously Healthy: Yes - Surgical History Surgical History: Yes Surgery Procedure, Year, and Place: Carpal Tunnel Surgery bilateral wrists 2008 , C section 1989 - Family History Known Family History: Positive: Hypertension - Social History Alcohol Use: None Alcohol Amount: denies Substance Use Type: None Smoking Status (MU): Light Every Day Tobacco Smoker Type: Cigarettes Amount Used/How Often: 1 pack in 2 days - Immunization History Most Recent Tetanus Shot: 2010 Review of Systems All Other Systems Reviewed And Are Negative: Yes Constitutional: Positive: Other - SEE HPI Skin: Positive: Negative Eyes: Positive: Negative ENT: Positive: Negative Respiratory: Positive: Negative Cardiovascular: Positive: Negative Gastrointestinal: Positive: Abdominal Pain Genitourinary: Positive: Negative Motor: Positive: Negative Neurovascular: Positive: Negative Musculoskeletal: Positive: Negative Neurological/Mental Status: Positive: Negative Psychological: Positive: Negative Is Patient Immunocompromised?: No Physical Exam Triage Information Reviewed: Yes Appearance: Well-Appearing, Well-Nourished, Pain Distress - MODERATE Vital Signs: Initial Vital Signs Temp 97.5 F 01/08/20 15:45 Pulse 83 01/08/20 15:45 Resp 20 01/08/20 15:45 BP 125/73 01/08/20 15:45 Pulse Ox 100 01/08/20 15:45 Vital Signs Reviewed: Yes Eye Exam: Normal Eyes: Positive: Conjunctiva Clear Neck: Positive: Supple Respiratory: Positive: Lungs clear, Normal breath sounds, No respiratory distress Abdomen Description: Positive: Other: - Patient is tender to palpation left lower quadrant and left inguinal fold. Nontender to palpation right lower quadrant or upper abdomen. Musculoskeletal: Positive: Strength Intact, ROM Intact Neurological: Positive: Alert Psychological: Positive: Age Appropriate Behavior Skin Exam: Normal Abd Pain Female Course/Dx - Course Course Of Treatment: Here in clinic at this time we do not have ultrasound. I recommended further evaluation in the emergency department. Patient prefers to go by POV. - Differential Dx/Diagnosis Provider Diagnosis: Left groin pain, Left lower quadrant abdominal pain Discharge ED - Sign-Out/Discharge Documenting (check all that apply): Patient Departure All imaging exams completed and their final reports reviewed: No Studies - Discharge Plan Condition: Stable Disposition: HOME-RECOMMEND TO ED Patient Education Materials: Acute Abdominal Pain (ED), Groin Pain (ED) Referrals: Merline Ramos MD [Primary Care Provider] - Additional Instructions: GO DIRECTLY TO THE EMERGENCY DEPARTMENT FOR FURTHER EVALUATION OF YOUR LEFT GROIN/LEFT LOWER ABDOMINAL PAIN. - Billing Disposition and Condition Condition: STABLE Disposition: Home-Recommend to ED
== END 2020-01-08 16:20 | disposition home health service (06) ==
LOC: UCEAST 15:37
DX: R10.32 Left lower quadrant pain (principal); Z88.5 Allergy status to narcotic agent; Z88.0 Allergy status to penicillin; F17.210 Nicotine dependence, cigarettes, uncomplicated
CPT/HCPCS: 99212; G0463

== ENCOUNTER 2020-01-08 16:41 | Emergency (ER) | payer OTHER ==
[2020-01-08] MEDS ORDERED: Ketorolac INJ* 30 MG/ML 1 ML VIAL IV PUSH ONE (17:20)
--- NOTE | 2020-01-08 17:24 | ED ---
GI/ HPI - HPI Summary HPI Summary: 49 year old female presents with abdominal pain today. she has tenderness in left lower quadrant. Pain hasn't moved anywhere. Pain has increased. She states it is sharp stabbing pain. Doesn't radiate to her back. Denies any urinary symptoms. She had a normal bowel movement this morning that did not change pain. No fevers. No nausea or vomiting. She took some Tylenol this morning. States it is a 10 out of 10 pain. She has had a history of ovarian cyst. States that she has had vaginal bleeding for the past 16 days that resolved today. states had period 2 months before that lasted for 12 days and then no period for 6 months before that. no history of diverticulitis. She has history of section and tubal ligation. - History of Current Complaint Chief Complaint: EDAbdPain Time Seen by Provider: 01/08/20 17:11 Stated Complaint: L GROIN PAIN PER PT Hx Last Menstrual Period: now Pain Intensity: 10 - Allergy/Home Medications Allergies/Adverse Reactions: Allergies Allergy/AdvReac Type Severity Reaction Status Date / Time amoxicillin Allergy Hives Verified 01/08/20 16:44 hydrocodone Allergy Itching Verified 01/08/20 16:44 Home Medications: Home Medications traMADol TAB* [Ultram*] 50 mg PO Q8HR PRN 07/26/16 [History Confirmed 01/08/20] Valsartan/HCTZ 80/12.5(NF) [Diovan Hct 80/12.5(NF)] 1 tab PO DAILY 10/21/16 [ History Confirmed 01/08/20] Albuterol inh POWDER (NF) [Proair Respiclick] 2 puff INH .Q4-6H PRN 01/08/20 [ History Confirmed 01/08/20] Fluticasone/Salmeterol [Fluticasone Propionate/SA 55-14 Mcg/Act] 1 puff INH BID 01/08/20 [History Confirmed 01/08/20] PMH/Surg Hx/FS Hx/Imm Hx Endocrine/Hematology History: Denies: Hx Diabetes, Hx Thyroid Disease Cardiovascular History: Reports: Hx Hypertension Denies: Hx Hypercholesterolemia, Hx Pacemaker/ICD, Hx Peripheral Vascular Disease Respiratory History: Reports: Hx Asthma Denies: Hx Chronic Obstructive Pulmonary Disease (COPD) GI History: Denies: Hx Ulcer Musculoskeletal History: Denies: Hx Arthritis, Hx Osteoporosis Sensory History: Reports: Hx Contacts or Glasses Denies: Hx Cataracts, Hx Glaucoma, Hx Hearing Aid Opthamlomology History: Reports: Hx Contacts or Glasses Denies: Hx Cataracts, Hx Glaucoma Neurological History: Denies: Hx Headaches, Hx Seizures, Hx Transient Ischemic Attacks (TIA) Psychiatric History: Denies: Hx Anxiety, Hx Depression, Hx Panic Disorder - Cancer History Hx Chemotherapy: No Hx Radiation Therapy: No - Surgical History Surgery Procedure, Year, and Place: Carpal Tunnel Surgery bilateral wrists 2008 , C section 1989 Infectious Disease History: No Infectious Disease History: Denies: Hx Hepatitis, Hx Human Immunodeficiency Virus (HIV), Hx of Known/ Suspected MRSA, Hx Shingles, Hx Tuberculosis, Hx Known/Suspected VRSA, Traveled Outside the [place] in Last 30 Days - Family History Known Family History: Positive: Hypertension - Social History Alcohol Use: None Alcohol Amount: denies Hx Substance Use: No Substance Use Type: Reports: None Hx Tobacco Use: No Smoking Status (MU): Light Every Day Tobacco Smoker Type: Cigarettes Amount Used/How Often: 1 pack in 2 days Review of Systems Negative: Fever Negative: Chest Pain Negative: Shortness Of Breath Positive: Abdominal Pain. Negative: Vomiting, Diarrhea, Nausea All Other Systems Reviewed And Are Negative: Yes Physical Exam Triage Information Reviewed: Yes Vital Signs On Initial Exam: Initial Vitals Temp Pulse Resp BP Pulse Ox 97.8 F 82 16 144/94 98 01/08/20 16:42 01/08/20 16:42 01/08/20 16:42 01/08/20 16:42 01/08/20 16:42 Vital Signs Reviewed: Yes Appearance: Positive: Well-Appearing Skin: Positive: Warm, Dry Head/Face: Positive: Normal Head/Face Inspection Eyes: Positive: Normal, Conjunctiva Clear ENT: Positive: Pharynx normal Respiratory/Lung Sounds: Positive: Clear to Auscultation, Breath Sounds Present Cardiovascular: Positive: Normal, RRR Abdomen Description: Positive: Soft, Other: - tenderness left inguinal area and LLQ Bowel Sounds: Positive: Present Musculoskeletal: Positive: Normal Neurological: Positive: Normal Psychiatric: Positive: Normal Procedures - Sedation Patient Received Moderate/Deep Sedation with Procedure: No Diagnostics - Vital Signs Vital Signs Temp Pulse Resp BP Pulse Ox 01/08/20 16:42 97.8 F 82 16 144/94 98 - Laboratory Result Diagrams: 01/08/20 17:49 01/08/20 17:49 Lab Statement: Any lab studies that have been ordered have been reviewed, and results considered in the medical decision making process. - Ultrasound No standard instances Ultrasound Interpretation Completed By: Radiologist Summary of Ultrasound Findings: IMPRESSION: Pelvic ultrasound is within normal limits. Re-Evaluation - Re-Evaluation First Eval Re-Evaluation Time: 19:12 Change: Improved Comment: feeling better. on exam nontender abd, is tenderness over left inguinal area, nontender hip GIGU Course/Dx - Course Course Of Treatment: 49 year old female presents with abdominal pain today. she has tenderness in left lower quadrant. Pain hasn't moved anywhere. Pain has increased. She states it is sharp stabbing pain. Doesn't radiate to her back. Denies any urinary symptoms. She had a normal bowel movement this morning that did not change pain. No fevers. No nausea or vomiting. She took some Tylenol this morning. States it is a 10 out of 10 pain. She has had a history of ovarian cyst. States that she has had vaginal bleeding for the past 16 days that resolved today. states had period 2 months before that lasted for 12 days and then no period for 6 months before that. no history of diverticulitis. She has history of section and tubal ligation. On exam tenderness in LLQ and left inguinal area. No masses appreciated. wbc normal. crp normal. lipase elevated but has no epigastric pain. repeat exam nontender abd. u/s shows no hernia or ovary cyst. on exam patient pain is very superfical to left groin and worst with hip movement so seems more likely muscle strain. will treat with tyenlol or ibuprofen and rest. told follow up with primary. patient understand and agrees with plan. - Diagnoses Differential Diagnoses - Female: Diverticulitis, Ovarian Cyst, Other - hernia Provider Diagnoses: Left groin pain - Critical Care Time Critical Care Statement: Critical care time is provided exclusive of any time spent performing procedures. Discharge ED - Sign-Out/Discharge Documenting (check all that apply): Patient Departure - Discharge Plan Condition: Good Disposition: HOME Patient Education Materials: Groin Pain (ED) Forms: *Work Release Referrals: Merline Ramos MD [Primary Care Provider] - Additional Instructions: Take tyenlol or ibuprofen every 6 hours for pain apply ice to the area follow up with primary within 5 days Return to ED if develop any new or worsening symptoms - Billing Disposition and Condition Condition: GOOD Disposition: Home
[2020-01-08 17:58] LABS: ABS Eosinophils 0.2 10^3/ul (0-0.6); ABS Lymphocytes 3.6 10^3/ul (1.0-4.8); ABS Monocytes 0.4 10^3/ul (0-0.8); ABS Neutrophils 3.1 10^3/ul (1.5-7.7); Eosinophil % 3.3 %; Hematocrit 36 % (35-47); Hemoglobin 12.2 g/dL (12.0-16.0); Lymphocyte % 48.7 %; Mean Corpuscular HGB Conc 35 g/dL (31-36); Mean Corpuscular Hemoglobin 30 pg (27-31); Mean Corpuscular Volume 86 fL (80-97); Mean Platelet Volume 7.5 fL (7.4-10.4); Platelet Count 265 10^3/uL (150-450); Red Blood Count 4.14 10^6 /uL (3.70-4.87); Red Cell Distribution Width 13 % (10-15); White Blood Count 7.4 10^3/uL (3.5-10.8)
[2020-01-08 18:17] LABS: ALT 22 U/L (7-52); AST 20 U/L (13-39); Albumin 4.1 g/dL (3.2-5.2); Albumin/Globulin Ratio 1.5 (1-3); Alkaline Phosphatase 49 U/L (34-104); Anion Gap 6 mmol/L (2-11); BUN/Creatinine Ratio 21.9 (8-20); Blood Urea Nitrogen 23 mg/dL (6-24); C Reactive Protein 6.82 mg/L (<8.01); CO2 Carbon Dioxide 26 mmol/L (22-32); Calcium 9.3 mg/dL (8.6-10.3); Chloride 104 mmol/L (101-111); EGFR African American 67.1 (>60); EGFR Non-African American 55.5 (>60); Globulin 2.8 g/dL (2-4); Glucose 91 mg/dL (70-100); Potassium 3.8 mmol/L (3.5-5.0); Sodium 136 mmol/L (135-145); Total Protein 6.9 g/dL (6.4-8.9)
[2020-01-08 18:24] LABS: HCG Pregnancy < 0.60 mIU/mL
[2020-01-08 20:32] VITALS: BP 134/72
== END 2020-01-08 19:55 | disposition home or self-care (01) ==
LOC: ED 16:41
DX: R10.30 Lower abdominal pain, unspecified (principal); F17.210 Nicotine dependence, cigarettes, uncomplicated
CPT/HCPCS: 36415; 76705; 76830; 80053; 83605; 83690; 84702; 85025; 86140; 96374; 99283; J1885